=== PATIENT | female | born 1985 | race Caucasian/White ===

== ENCOUNTER 2023-12-02 13:45 | Emergency (ER) | payer OTHER, SELFPAY ==
[2023-12-02 13:59] VITALS: BP 148/96; PULSE 96; RESP 18; TEMP 36.6; O2SAT 99; BMI 28.5
--- NOTE | 2023-12-02 14:41 | ED_ITS ---
HPI - Abdominal Pain General Chief Complaint: Abdominal Pain Stated Complaint: ABDOMINAL PAIN Time Seen by Provider: 12/02/23 13:52 Source: patient Mode of arrival: walk-in Limitations: no limitations History of Present Illness HPI narrative: Left sided abdominal pain that began suddenly while she was at work. She apparently sees physicians at [facility] [place]. She told the triage nurse that she had nausea associated with her abdominal pain. She was brought back to room 4. I was in another room managing a patient with multiple syncopal episodes and then got called into a different patient room where a patient who developed chest pain during PFTs here at the hospital had just arrived. When I came out of the other patient's room, this patient was walking out of the ED. She told the nurses that she was going to go to [facility] to be evaluated. the nurses tried to convince her to stay but she left without signing an AMA form. Related Data Allergies Allergy/AdvReac Type Severity Reaction Status Date / Time Penicillins AdvReac Intermediate Verified 12/02/23 13:58 PFSH PFSH Social History Smoking status: Current every day smoker Exam Narrative Exam Narrative: did not see or exam the patient Constitutional Vital Signs, click to edit/add: Last Vital Signs Temp 97.8 F 12/02/23 13:59 Pulse 96 H 12/02/23 13:59 Resp 18 12/02/23 13:59 BP 148/96 H 12/02/23 13:59 Pulse Ox 99 12/02/23 13:59 O2 Del Method Room Air 12/02/23 13:59 Course Vital Signs Vital signs: Vital Signs Temperature 97.8 F 12/02/23 13:59 Pulse Rate 96 H 12/02/23 13:59 Respiratory Rate 18 12/02/23 13:59 Blood Pressure 148/96 H 12/02/23 13:59 Pulse Oximetry 99 12/02/23 13:59 Oxygen Delivery Method Room Air 12/02/23 13:59 Temperature 97.8 F 12/02/23 13:59 Pulse Rate 96 H 12/02/23 13:59 Respiratory Rate 18 12/02/23 13:59 Blood Pressure 148/96 H 12/02/23 13:59 Pulse Oximetry 99 12/02/23 13:59 Oxygen Delivery Method Room Air 12/02/23 13:59 MDM - Abdominal Pain MDM Narrative Medical decision making narrative: she left before I could see her or evaluate her symptoms. Discharge Plan Discharge Chief Complaint: Abdominal Pain Patient Disposition: Left Without Being Seen Time of Disposition Decision: 14:40 Discharge Date/Time: 12/02/23 14:43
== END 2023-12-02 14:43 | disposition left against medical advice (07) ==
LOC: ER 13:56
PROVIDERS: Emergency Provider Emergency Medicine
DX: Z53.21 Procedure and treatment not carried out due to patient leaving prior to being seen by health care provider (principal); R10.9 Unspecified abdominal pain; F17.210 Nicotine dependence, cigarettes, uncomplicated